=== PATIENT | female | born 1985 | race Caucasian/White ===

== ENCOUNTER 2019-08-06 08:24 | Emergency (ER) | payer SELFPAY ==
[~2019-08-06] VITALS: Ht 165.1 cm; Wt 60.0 kg
[2019-08-06] MEDS ORDERED: IV NORMAL SALINE 1000ML BAG 1,000 ML IV SCH (08:40)
[2019-08-06] MEDS ORDERED: ONDANSETRON PF 4 MG/2 ML VIAL. IV ONE (09:15)
[2019-08-06] MEDS ORDERED: fentaNYL PF VIAL 100 MCG/2 ML VIAL IV ONE (09:15)
[2019-08-06 09:19] LABS: BILIRUBIN,URINE NEGATIVE (NEG); CLARITY,URINE CLEAR; COLOR,URINE YELLOW; NITRITE,URINE NEGATIVE (NEG); PH,URINE 5.5; PROTEIN,URINE NEGATIVE (NEG-TRACE); UROBILINOGEN,URINE 0.2 mg/dL (0.2 mg/dL)
--- NOTE | 2019-08-06 09:19 | RAD ---
CT head and cervical spine without contrast History: Fall Technique: Noncontrast CT imaging was performed of the head and cervical spine. Multiplanar reconstruction images are submitted. Exposure: One or more of the following individualized dose reduction techniques were utilized for this examination: 1. Automated exposure control 2. Adjustment of the mA and/or kV according to patient size 3. Use of iterative reconstruction technique. Head CT Comparison: None Findings: There is mild motion. No convincing acute intracranial hemorrhage is identified. There is no midline shift or intra-axial mass effect. Ventricles, sulci, and cisterns are within normal limits in size and configuration. No acute calvarial abnormality is identified. Visualized paranasal sinuses and mastoid air cells are aerated. Impression: 1. No convincing acute intracranial abnormality is identified. Cervical spine CT Comparison: None Findings: No acute cervical spine fracture is identified. Vertebral body stature and AP alignment are within normal limits. Atlanto-axial distance is within normal limits. There is appropriate alignment of lateral masses of C1 relative to C2. Occipital condylar-C1 relationship is maintained. Intervertebral disc spaces are maintained. No significant cervical spinal stenosis is identified on this nonmyelographic exam, mild diffuse narrowing of the cervical spinal canal on a developmental basis. Cervical neural foramina are not significantly narrowed. Impression: 1. No acute cervical spine fracture is identified. Electronically signed by: Napoleon Zaragoza MD (08/06/2019 9:16 AM) [facility]
[2019-08-06 09:22] LABS: BASO # 0.1 x10^3/uL (0.0-0.2); BASO % 1 % (0-3); EOS # 0.2 x10^3/uL (0.0-0.7); EOS % 2 % (0-3); HEMATOCRIT 44.2 % (36.0-47.0); HEMOGLOBIN 15.2 g/dL (12.0-15.5); LYMPH # 2.3 x10^3/uL (1.0-4.8); LYMPH % 23 % (24-48); MEAN CORPUSCULAR HEMOGLOBIN 32 pg (25-35); MEAN CORPUSCULAR HGB CONC 34 g/dL (31-37); MEAN CORPUSCULAR VOLUME 95 fL (79-100); MONO # 0.8 x10^3/uL (0.0-1.1); MONO % 8 % (0-9); NEUT # 6.7 x10^3/uL (1.8-7.7); NEUT % 67 % (31-73); PLATELET COUNT 289 x10^3/uL (140-400); RED BLOOD COUNT 4.68 x10^6/uL (3.50-5.40); RED CELL DISTRIBUTION WIDTH 13.5 % (11.5-14.5)
--- NOTE | 2019-08-06 09:25 | RAD ---
PORTABLE CHEST 1V History: Fall. Pain. Comparison: None. Findings: No consolidation or pleural effusion. Normal heart size. No pneumothorax. Right upper lung calcified nodule, likely prior granulous disease. Impression: 1. No acute cardiopulmonary process. Electronically signed by: Tien Israel DO (08/06/2019 9:22 AM) [facility]
[2019-08-06 09:29] LABS: BARBITURATES NEG (NEG); BENZODIAZEPINES NEG (NEG); CANNABINOIDS NEG (NEG); COCAINE NEG (NEG); METHADONE NEG (NEG); OPIATES NEG (NEG); PHENCYCLIDINE NEG (NEG)
[2019-08-06 09:30] LABS: CALCIUM 8.1 mg/dL (8.5-10.1); CREATININE 0.7 mg/dL (0.6-1.0); GFR 95.8; POTASSIUM 3.8 mmol/L (3.5-5.1)
[2019-08-06 09:31] LABS: AMPHETAMINE/METHAMPHETAMINE NEG (NEG)
[2019-08-06 09:32] LABS: PROTHROMBIN TIME PATIENT 12.4 SEC (11.7-14.0)
[2019-08-06 09:38] LABS: ALBUMIN/GLOBULIN RATIO 1.3 (1.0-1.7); TOTAL BILIRUBIN 0.2 mg/dL (0.2-1.0)
[2019-08-06 09:47] LABS: BACTERIA,URINE 0 /HPF (0-FEW); RBC,URINE 0 /HPF (0-2); SQUAMOUS EPITHELIAL CELL,UR FEW /LPF; WBC,URINE 0 /HPF (0-4)
[2019-08-06] MEDS ORDERED: IV NORMAL SALINE 1000ML BAG 1,000 ML IV ONE (10:15)
--- NOTE | 2019-08-06 12:42 | PHYS DOC ---
Past Medical History Past Medical History: Depression Alcohol Use: Occasionally Adult General Chief Complaint Chief Complaint: TRAUMA ALERT HPI HPI Patient is a 34 year old female with history of depression who presents via EMS with complaint of a fall and head injury. Patient is in process of divorce and then to a friend's house and had alcohol last night. Patient went downstairs this morning and had a fall with a "bumping noise" and her friend found her un responsive and called 911.EMS reported that patient had GCS of 14 with complaining of headache and neck pain and laceration of the right side of her face. Patient is not up-to-date with tetanus immunization. Review of Systems Review of Systems Constitutional: Denies fever or chills [] Eyes: Denies change in visual acuity, redness, or eye pain [] HENT: Denies nasal congestion or sore throat [] Respiratory: Denies cough or shortness of breath [] Cardiovascular: No additional information not addressed in HPI [] GI: Denies abdominal pain, nausea, vomiting, bloody stools or diarrhea [] : Denies dysuria or hematuria [] Musculoskeletal: Denies back pain or joint pain, reports neck pain [] Integument: Denies rash or skin lesions [] Neurologic: Reports headache, denies focal weakness or sensory changes [] Endocrine: Denies polyuria or polydipsia [] All other systems were reviewed and found to be within normal limits, except as documented in this note. Current Medications Current Medications Current Medications Medications (Trade) Dose Ordered Sig/Collin Start Time Stop Time Status Last Admin Dose Admin Diphtheria/ Tetanus/Acell Pertussis (Boostrix) 0.5 ml ONCE ONCE 08/06/19 12:45 08/06/19 12:46 DC 08/06/19 12:50 0.5 ML Fentanyl Citrate (Fentanyl 2ml Vial) 25 mcg 1X ONCE 08/06/19 09:15 08/06/19 09:16 DC 08/06/19 09:20 25 MCG Ondansetron HCl (Zofran) 4 mg 1X ONCE 08/06/19 09:15 08/06/19 09:16 DC 08/06/19 09:15 4 MG Sodium Chloride 1,000 ml @ 1,000 mls/hr 1X ONCE 08/06/19 10:15 08/06/19 11:14 DC 08/06/19 11:25 1,000 MLS/HR Allergies Allergies Allergies Coded Allergies Type Severity Reaction Last Updated Verified No Known Drug Allergies 08/06/19 No Physical Exam Physical Exam Constitutional: Well developed, well nourished, moderate distress, non-toxic appearance, smell of alcohol on breath. [] HENT: Normocephalic, 1.5 flap laceration of corner of right eyebrow with mild bleeding Eyes: PERRLA, EOMI, conjunctiva normal, no discharge. [] Neck: Immobilized prior to arrival to ER Cardiovascular:Heart rate regular rhythm, no murmur [] Lungs & Thorax: Bilateral breath sounds clear to auscultation [] Abdomen: Bowel sounds normal, soft, no tenderness, no masses, no pulsatile masses. [] Skin: Warm, dry, no erythema, no rash. [] Back: No tenderness, no CVA tenderness. [] Extremities: No tenderness, no cyanosis, no clubbing, ROM intact, no edema. [] Neurologic: Alert and oriented X 3, keeps her eyes closed and talking slurred, no focal deficits noted. [] Psychologic: Affect normal, judgement normal, mood normal. [] Current Patient Data Vital Signs Vital Signs Date Time Temp Pulse Resp B/P (MAP) Pulse Ox O2 Delivery O2 Flow Rate FiO2 08/06/19 12:52 85 20 98/58 (71) 97 Room Air 08/06/19 08:31 97.7 97.7 Lab Values Laboratory Tests Test 08/06/19 08:45 08/06/19 08:49 08/06/19 08:50 08/06/19 11:25 Urine Collection Type U cath Urine Color Yellow Urine Clarity Clear Urine pH 5.5 Urine Specific [place] 1.010 Urine Protein Negative mg/dL (NEG-TRACE) Urine Glucose (UA) Negative mg/dL (NEG) Urine Ketones (Stick) Negative mg/dL (NEG) Urine Blood Negative (NEG) Urine Nitrite Negative (NEG) Urine Bilirubin Negative (NEG) Urine Urobilinogen Dipstick 0.2 mg/dL (0.2 mg/dL) Urine Leukocyte Esterase Negative (NEG) Urine RBC 0 /HPF (0-2) Urine WBC 0 /HPF (0-4) Urine Squamous Epithelial Cells Few /LPF Urine Transitional Epithelial Cells Occ /LPF Urine Bacteria 0 /HPF (0-FEW) Urine Mucus Slight /LPF Urine Opiates Screen Neg (NEG) Urine Methadone Screen Neg (NEG) Urine Barbiturates Neg (NEG) Urine Phencyclidine Screen Neg (NEG) Urine Amphetamine/Methamphetamine Neg (NEG) Urine Benzodiazepines Screen Neg (NEG) Urine Cocaine Screen Neg (NEG) Urine Cannabinoids Screen Neg (NEG) Urine Ethyl Alcohol Pos (NEG) POC Urine HCG, Qualitative Hcg negative (Negative) White Blood Count 10.0 x10^3/uL (4.0-11.0) Red Blood Count 4.68 x10^6/uL (3.50-5.40) Hemoglobin 15.2 g/dL (12.0-15.5) Hematocrit 44.2 % (36.0-47.0) Mean Corpuscular Volume 95 fL (79-100) Mean Corpuscular Hemoglobin 32 pg (25-35) Mean Corpuscular Hemoglobin Concent 34 g/dL (31-37) Red Cell Distribution Width 13.5 % (11.5-14.5) Platelet Count 289 x10^3/uL (140-400) Neutrophils (%) (Auto) 67 % (31-73) Lymphocytes (%) (Auto) 23 % (24-48) L Monocytes (%) (Auto) 8 % (0-9) Eosinophils (%) (Auto) 2 % (0-3) Basophils (%) (Auto) 1 % (0-3) Neutrophils # (Auto) 6.7 x10^3/uL (1.8-7.7) Lymphocytes # (Auto) 2.3 x10^3/uL (1.0-4.8) Monocytes # (Auto) 0.8 x10^3/uL (0.0-1.1) Eosinophils # (Auto) 0.2 x10^3/uL (0.0-0.7) Basophils # (Auto) 0.1 x10^3/uL (0.0-0.2) Prothrombin Time 12.4 SEC (11.7-14.0) Prothrombin Time INR 1.0 (0.8-1.1) Activated Partial Thromboplast Time 30 SEC (24-38) Sodium Level 140 mmol/L (136-145) Potassium Level 3.8 mmol/L (3.5-5.1) Chloride Level 103 mmol/L (98-107) Carbon Dioxide Level 26 mmol/L (21-32) Anion Gap 11 (6-14) Blood Urea Nitrogen 17 mg/dL (7-20) Creatinine 0.7 mg/dL (0.6-1.0) Estimated GFR (Cockcroft-Gault) 95.8 BUN/Creatinine Ratio 24 (6-20) H Glucose Level 90 mg/dL (70-99) Calcium Level 8.1 mg/dL (8.5-10.1) L Total Bilirubin 0.2 mg/dL (0.2-1.0) Aspartate Amino Transferase (AST) 36 U/L (15-37) Alanine Aminotransferase (ALT) 20 U/L (14-59) Alkaline Phosphatase 77 U/L (46-116) Total Protein 7.0 g/dL (6.4-8.2) Albumin 4.0 g/dL (3.4-5.0) Albumin/Globulin Ratio 1.3 (1.0-1.7) Lipase 149 U/L (73-393) Ethyl Alcohol Level 229 mg/dL (0-10) H Glucose (Fingerstick) 71 mg/dL (70-99) Laboratory Tests 08/06/19 08:50 Laboratory Tests 08/06/19 08:50 EKG EKG [] Radiology/Procedures Radiology/Procedures [address] [address] IMAGING REPORT Signed PATIENT: LAURA NÚÑEZ ACCOUNT: [id number] : 1985 LOCATION: ER AGE: 34 SEX: F EXAM STATUS: REG ER ORD. PHYSICIAN: SHAMIKA HAJI MD REASON: fall, PATIENT FELL DOWN THE STEPS PROCEDURE: PORTABLE CHEST 1V PORTABLE CHEST 1V History: Fall. Pain. Comparison: None. Findings: No consolidation or pleural effusion. Normal heart size. No pneumothorax. Right upper lung calcified nodule, likely prior granulous disease. Impression: 1. No acute cardiopulmonary process. Electronically signed by: Tien Israel DO (08/06/2019 9:22 AM) [id number] DICTATED and SIGNED BY: TIEN ISRAEL DO DATE: 08/06/19 [id number] [place] [address] IMAGING REPORT Signed PATIENT: LAURA NÚÑEZ ACCOUNT: [id number] : 1985 LOCATION: ER AGE: 34 SEX: F EXAM STATUS: REG ER ORD. PHYSICIAN: SHAMIKA HAJI MD REASON: fall PROCEDURE: CT HEAD AND CERVICAL SPINE WO CT head and cervical spine without contrast History: Fall Technique: Noncontrast CT imaging was performed of the head and cervical spine. Multiplanar reconstruction images are submitted. Exposure: One or more of the following individualized dose reduction techniques were utilized for this examination: 1. Automated exposure control 2. Adjustment of the mA and/or kV according to patient size 3. Use of iterative reconstruction technique. Head CT Comparison: None Findings: There is mild motion. No convincing acute intracranial hemorrhage is identified. There is no midline shift or intra-axial mass effect. Ventricles, sulci, and cisterns are within normal limits in size and configuration. No acute calvarial abnormality is identified. Visualized paranasal sinuses and mastoid air cells are aerated. Impression: 1. No convincing acute intracranial abnormality is identified. Cervical spine CT Comparison: None Findings: No acute cervical spine fracture is identified. Vertebral body stature and AP alignment are within normal limits. Atlanto-axial distance is within normal limits. There is appropriate alignment of lateral masses of C1 relative to C2. Occipital condylar-C1 relationship is maintained. Intervertebral disc spaces are maintained. No significant cervical spinal stenosis is identified on this nonmyelographic exam, mild diffuse narrowing of the cervical spinal canal on a developmental basis. Cervical neural foramina are not significantly narrowed. Impression: 1. No acute cervical spine fracture is identified. Electronically signed by: Sara Zaragoza MD (08/06/2019 9:16 AM) [facility] DICTATED and SIGNED BY: SARA ZARAGOZA MD DATE: 08/06/19915 Course & Med Decision Making Course & Med Decision Making Pertinent Labs and Imaging studies reviewed. (See chart for details) Evaluation of patient in ER showed 34-year-old female patient with alcohol intoxication and fall and head injury. Patient had unremarkable CT head and neck and chest x-ray. Laceration of face fussy. Dermabond and Steri-Strip. Patient treated with IV fluid and finally became awake and alert and oriented and able to ambulated without problem and tolerated oral intake and discharged home with her friend. Dragon Disclaimer Dragon Disclaimer This electronic medical record was generated, in whole or in part, using a voice recognition dictation system. Departure Departure Impression: Primary Impression: Fall down stairs Additional Impressions: Alcohol intoxication Facial laceration Disposition: HOME, SELF-CARE (at 1240) Condition: IMPROVED Referrals: BELKIS HARLEY (PCP) Patient Instructions: Alcohol Intoxication, Fall Prevention and Home Safety, Tissue Adhesive Wound Care Additional Instructions: Drink plenty of liquids Follow-up with your primary care physician in 3-5 days Return to ER if not getting better Thank you for visiting [facility]. We appreciate you trusting us with your care. If any additional problems come up don't hesitate to return to visit us. Please follow up with your primary care provider so they can plan additional care if needed and know about the problem that you had. If symptoms worsen come back to the Emergency Department. Any concerning symptoms that start such as chest pain, shortness of air, weakness or numbness on one side of the body, running high fevers or any other concerning symptoms return to the ER. Laceration Repair Lac Repair Indication: face Procedure: The patient was placed in the appropriate position 0.5 flap laceration of the corner of right eyebrow was repaired with Dermabond and Steri- Strip Total repaired wound length: 1.5 cm Other Items: [OTHER ITEMS] The patient tolerated the procedure well]. Complications: None. Problem Qualifiers Primary Impression: Fall down stairs Encounter type: initial encounter Qualified Codes: W10.8XXA - Fall (on) (from) other stairs and steps, initial encounter Additional Impressions: Alcohol intoxication Complication of substance-induced condition: uncomplicated Qualified Codes: F10.920 - Alcohol use, unspecified with intoxication, uncomplicated Facial laceration Encounter type: sequela Qualified Codes: S01.81XS - Laceration without foreign body of other part of head, sequela SHAMIKA HAJI MD Aug 06, 2019 12:42
[2019-08-06] MEDS ORDERED: DIPHTH,PERTUSS(ACELL),TET TOX 0.5 ML DISP.SYRIN. VAX IM ONE (12:45)
[2019-08-06 12:52] VITALS: BP 98/58
== END 2019-08-06 13:25 | disposition home or self-care (01) ==
LOC: ER 08:24
DX: S01.111A Laceration without foreign body of right eyelid and periocular area, initial encounter (principal); F10.129 Alcohol abuse with intoxication, unspecified; M54.2 Cervicalgia; R51 Headache; F32.9 Major depressive disorder, single episode, unspecified; W10.9XXA Fall (on) (from) unspecified stairs and steps, initial encounter; Y93.89 Activity, other specified; Y92.89 Other specified places as the place of occurrence of the external cause; Y99.8 Other external cause status
CPT/HCPCS: 12011; 36415; 70450; 71045; 72125; 80053; 80307; 81001; 81025; 82962; 83690; 85025; 85610; 85730; 90471; 90715; 96374; 96375; 99285; G0480; J2405; J3010; J7030